=== PATIENT | male | born 1945 | race Hispanic/Latino ===

== ENCOUNTER 2017-05-18 09:41 | Outpatient (CLI) | payer MEDICARE ==
--- NOTE | 2017-05-18 16:27 | XRay Report ---
XRAY LEFT HIP THREE VIEWS: 05/18/17 09:41:00 CLINICAL: Left hip pain. FINDINGS: Osteoarthritis with superior acetabular eburnation and complete loss of the superior-lateral joint space. No fracture or dislocation. Moderate less severe osteoarthritis of the right hip. The pelvic bones are intact. The SI joints are normal. Normal soft tissues. 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
== END 2017-05-18 09:42 | disposition home or self-care (01) ==
LOC: SPVIMAG 09:41
PROVIDERS: ATTEND Orthopaedic Surgery Sports Medicine
DX: M16.0 Bilateral primary osteoarthritis of hip (principal)